=== PATIENT | male | born 1965 | race Caucasian/White ===

== ENCOUNTER 2017-06-01 15:45 | Emergency (ER) | payer OTHER ==
[~2017-06-01] VITALS: Ht 180.3 cm; Wt 90.7 kg
[2017-06-01 15:56] VITALS: BP 137/75
--- NOTE | 2017-06-01 16:22 | ED UPPER/LOWER EXTREMITY COMPL ---
History of Present Illness General Chief Complaint: Laceration Procedure Stated Complaint: RT HAND LAC Source: patient Exam Limitations: no limitations Vital Signs & Intake/Output Vital Signs & Intake/Output Vital Signs Date Time Temp Pulse Resp B/P B/P Pulse O2 O2 Flow FiO2 Mean Ox Delivery Rate 06/01 1636 99 Room Air 06/01 1556 97.9 80 15 137/75 97 Room Air Room Air Allergies Coded Allergies: No Known Allergies (06/01/17) Reconcile Medications No Known Home Medications Triage Note: PT TO ED FOR C/C OF LAC TO R FOURTH FINGER S/P CHANGING UTILITY SAW BLADE. +BLEEDING IN TRIAGE, DRESSING APPLIED. TETANUS WITHIN 10 YEARS. Triage Nurses Notes Reviewed? yes Onset: Abrupt Duration: constant Timing: single episode today Severity: moderate Severity Numbers: 5 Pain/Injury Location: Left: 4th finger. Method of Injury: laceration HPI: Patient is a 52-year-old male who presents emergency and that today he accidentally cut the distal aspect of his right fourth digit of his hand with a razor blade resulting in a laceration in which bleeding was controlled prior to arrival. Patient is left arm dominant. Tetanus status is up to date. Past History Travel History Traveled to [place] past 21 day No Medical History Any Pertinent Medical History? none Neurological: NONE EENT: NONE Cardiovascular: NONE Respiratory: NONE Gastrointestinal: NONE Hepatic: NONE Renal: NONE Musculoskeletal: NONE Psychiatric: NONE Endocrine: NONE Blood Disorders: NONE Cancer(s): NONE CONCRETE FLOATER/Reproductive: NONE Surgical History Surgical History: non-contributory Psychosocial History What is your primary language Djib[place]ian Tobacco Use: Never used ETOH Use: occasional use Illicit Drug Use: denies illicit drug use Family History Hx Contributory? No Review of Systems Review of Systems Constitutional: Reports: no symptoms. EENTM: Reports: no symptoms. Respiratory: Reports: no symptoms. Cardiovascular: Reports: no symptoms. Gastrointestinal/Abdominal: Reports: no symptoms. Genitourinary: Reports: no symptoms. Musculoskeletal: Reports: see HPI. Skin: Reports: see HPI. Neurological/Psychological: Reports: no symptoms. Hematologic/Endocrine: Reports: see HPI, bleeding. Immunological: Reports: no symptoms. All Other Systems: Reviewed and Negative Physical Exam Physical Exam General Appearance: no apparent distress, alert Neurologic/Tendon: normal sensation, normal motor functions, normal tendon functions, responds to pain, no evidence tendon injury, no pulse deficit Skin: normal color, warm/dry Comments: Well-developed well-nourished no apparent distress. HEENT: Atraumatic, extraocular motion intact Neck: Supple, no lymphadenopathy Back: Nontender Respiratory: No respiratory distress Extremities: Right wrist normal INSPECTION nontender Neuro: Alert and oriented x3 Psych: Mood affect normal, normal memory normal judgment. Diagram Hands Back 1) Noted deep 1 cm flap laceration involving approximate 20% of the distal nail no exposed bone no exposed tendon full active range of motion of flexion and extension full resisted range of motion noted flexion-extension no tendon deficit no active bleeding Progress Differential Diagnosis: arterial insufficiency, compartment syndrome, contusion, dislocation, DVT, fracture, gout, septic arthritis, sprain, tendon injury Plan of Care: Orders Procedure Date/time Status XRY-HAND, 3 View RIGHT 06/01 1558 Active Patient tolerated laceration repair well. Patient was strongly advised to follow-up with plastic surgery Patient was offered pain medications and declined (EDA MANCIA,GRACE) Diagnostic Imaging: Viewed by Me: Radiology Read. Radiology Impression: no fracture Comments: PATIENT: VINCENT KRUSE PRESENT AGE: 52 PATIENT ACCOUNT NO: [id number] : 64 LOCATION: [facility] ORDERING PHYSICIAN: GRACE MANCIA SERVICE DATE: 06/01/17 EXAM TYPE: RAD - XRY-HAND, RIGHT EXAMINATION: XR HAND, RIGHT CLINICAL INFORMATION: Trauma COMPARISON: None TECHNIQUE: AP, lateral, and oblique views of the right hand. FINDINGS: There is soft tissue swelling of the fourth finger. No acute fracture or dislocation seen. No radiodense foreign body. IMPRESSION: Soft tissue injury of the fourth finger without acute fracture or dislocation. DICTATED BY: KORIN PEREZ MD DATE/TIME DICTATED:06/01/171630 PRINCIPAL SOFTWARE ARCHITECT:AIMEE DATE/TIME TRANSCRIBED:06/01/17 Departure Departure Disposition: HOME OR SELF CARE Condition: Stable Clinical Impression Primary Impression: Laceration of finger of right hand with damage to nail Referrals: KAITLYN SALDIVAR DO (PCP/Family) OTILIA SEGURA,TIM Additional Instructions: As discussed begin to look at the wound once a day and if you note signs of infection redness, pain, swelling, discharge return to the emergency room. Begin to change the dressings with the bandages and a Xeroform provided to the emergency room. Keep area dry and clean as YOU can. On Saturday follow-up and establish plastic surgeon Dr. Kwon to make an appointment to be seen later on that week for further evaluation treatment. Please have the stitches removed in approximately 10 days. For pain and inflammation begin [id number] ibuprofen For the following 2 days continue to leave the splint on TO IMPROVE healing then after just use the bandages provided to you Departure Forms: Customer Survey General Discharge Information Prescriptions: Current Visit Scripts No Known Home Medications Procedures Laceration/Wound Repair Laceration/Wound Repair: Wound Location: upper extremity (RIGHT INDEX 2ND DIGIT) Wound's Depth, Shape: flap Wound Length (cm): 1 Wound Explored: clean, no foreign body removed, irrigated extensively Irrigated w/ Saline (ccs): 500 Betadine Prep? Yes Anesthesia: 1% lidocaine Volume Anesthetic (ccs): 5 Wound Repaired With: sutures Suture Size/Type: 5:0 Number of Sutures: 5 Layer Closure? No Progress: Initially Betadine was used for sterile technique in which using 1% lidocaine 5 mL digital block was performed to right index finger second digit of hand. I then used #4 5-0 to the peripheral edge of the nail however using #1 4-0 Polysorb stitches I then approximated the nail through the avulsed nail to the nail bed margins were revised patient tolerated well. Xeroform bandage and finger splint was then applied pre-and post-neurovascular was intact
--- NOTE | 2017-06-01 16:36 | RADIOLOGY REPORT ---
EXAMINATION: XR HAND, RIGHT CLINICAL INFORMATION: Trauma COMPARISON: None TECHNIQUE: AP, lateral, and oblique views of the right hand. FINDINGS: There is soft tissue swelling of the fourth finger. No acute fracture or dislocation seen. No radiodense foreign body. IMPRESSION: Soft tissue injury of the fourth finger without acute fracture or dislocation.
== END 2017-06-01 18:06 ==
LOC: ERH 15:45
DX: S61.314A Laceration without foreign body of right ring finger with damage to nail, initial encounter (principal); W45.8XXA Other foreign body or object entering through skin, initial encounter; Y92.9 Unspecified place or not applicable; Y93.9 Activity, unspecified
CPT/HCPCS: 73130-RT

== ENCOUNTER 2017-11-28 13:27 | Observation (INO) | payer OTHER ==
[~2017-11-28] VITALS: Ht 180.3 cm; Wt 90.7 kg
[2017-11-28 14:08] LABS: ABSOLUTE BASOPHIL COUNT 0 /CUMM (0.0-0.2); ABSOLUTE EOSINOPHIL COUNT 0.1 /CUMM (0.0-0.7); ABSOLUTE GRANULOCYTE CT 11.2 /CUMM (1.4-6.5); ABSOLUTE MONOCYTE COUNT 0.7 /CUMM (0.10-0.60); BASOPHIL % 0.3 % (0.0-2.0); EOSINOPHIL % 0.7 % (0-5); GRANULOCYTE % 85.8 % (42.2-75.2); HEMATOCRIT 44.3 % (42-52); MEAN CORPUSCULAR HGB 30.1 PG (27.0-31.0); MEAN CORPUSCULAR HGB CONC 34.1 G/DL (33.0-37.0); MEAN CORPUSCULAR VOLUME 88.3 FL (80.0-94.0); MEAN PLATELET VOLUME 7.1 FL (7.4-10.4); PLATELET COUNT 307 /CUMM (130-400); RBC DISTRIBUTION WIDTH 13.6 % (11.5-14.5); RED BLOOD CELL CT 5.01 /CUMM (4.70-6.10)
--- NOTE | 2017-11-28 14:36 | ED GI/GU/ABDOMINAL COMPLAINT ---
History of Present Illness General Chief Complaint: Abdominal Pain/Flank Pain Stated Complaint: ABD PAIN Source: patient Exam Limitations: no limitations Vital Signs & Intake/Output Vital Signs & Intake/Output Vital Signs Date Time Temp Pulse Resp B/P B/P Pulse O2 O2 Flow FiO2 Mean Ox Delivery Rate 11/28 1802 98.4 84 20 129/69 98 Room Air Room Air 11/28 1734 97.6 11/28 1600 97.6 76 20 108/60 97 Room Air 11/28 1343 96.6 64 18 145/93 98 Room Air Allergies Coded Allergies: No Known Allergies (06/01/17) Reconcile Medications No Known Home Medications Triage Note: 52 YO MALE TO TRIAGE C/O RLQ PAIN SINCE THIS AM. PT STATES +NV. DENIES DIRRHEA. PT PALE IN COLOR. STATES PAIN IS SHARP IN NATURE. Triage Nurses Notes Reviewed? yes Onset: Abrupt Duration: day(s): (1), constant, continues in ED, getting worse Timing: single episode today Quality/Severity: sharpness, severe Severity Numbers: 8 Location: left lower quadrant, right lower quadrant Radiation: no radiation Activities at Onset: none Prior Abdominal Problems: none Past Sexual History: Unobtainable at this time No Modifying Factors: none Modifying Factors: Worsens With: movement, palpation. Associated Symptoms: abdominal pain, nausea/vomiting HPI: 52-year-old male no past medical history presents for evaluation of abdominal pain nausea and vomiting. Patient states that symptoms started abruptly late last night and been getting worse. The pain is located on both sides of his lower abdomen worse on the right side. Describes pain as sharp stabbing pain that does not radiate. He rates it as a attending is not taking any medicine. He reports associated nausea and vomiting. Has not been able to eat or drink much because of this. No previous abdominal surgeries never had these symptoms before. No chest pain or shortness of breath no fevers. No urinary symptoms no diarrhea. (Pradeep Teixeira) Past History Travel History Traveled to [place] past 21 day No Medical History Any Pertinent Medical History? see below for history Neurological: NONE EENT: NONE Cardiovascular: NONE Respiratory: NONE Gastrointestinal: NONE Hepatic: NONE Renal: NONE Musculoskeletal: NONE Psychiatric: NONE Endocrine: NONE Blood Disorders: NONE Cancer(s): NONE KNOWLEDGE ARCHITECT/Reproductive: NONE Surgical History Surgical History: non-contributory Psychosocial History What is your primary language [place]dean Tobacco Use: Never used Family History Hx Contributory? No (Pradeep Teixeira) Review of Systems Review of Systems Constitutional: Reports: no symptoms. EENTM: Reports: no symptoms. Respiratory: Reports: no symptoms. Cardiovascular: Reports: no symptoms. GI: Reports: see HPI, abdominal pain, nausea, vomiting. Genitourinary: Reports: no symptoms. Musculoskeletal: Reports: no symptoms. Skin: Reports: no symptoms. Neurological/Psychological: Reports: no symptoms. Hematologic/Endocrine: Reports: no symptoms. Immunologic/Allergic: Reports: no symptoms. All Other Systems: Reviewed and Negative (Pradeep Teixeira) Physical Exam Physical Exam General Appearance: well developed/nourished, alert, awake, moderate distress Head: atraumatic, normal appearance Eyes: Bilateral: normal appearance, PERRL, EOMI. Ears, Nose, Throat, Mouth: hearing grossly normal, moist mucous membrane, Tympanic normal Neck: normal inspection, supple, full range of motion Respiratory: normal breath sounds, chest non-tender, no respiratory distress, lungs clear Cardiovascular: regular rate/rhythm, normal peripheral pulses Peripheral Pulses: 2+ radial (R), 2+ radial (L) Gastrointestinal: normal bowel sounds, soft, no organomegaly, tenderness (rlq, suprapubic ) Back: normal inspection, normal range of motion, no vertebral tenderness Extremities: normal range of motion Neurologic/Psych: no motor/sensory deficits, awake, alert, oriented x 3, normal gait Skin: intact, normal color, warm/dry Core Measures ACS in differential dx? No Sepsis Present: No Sepsis Focused Exam Completed? No (Pradeep Teixeira) Progress Differential Diagnosis: appendicitis, biliary colic, cholecystitis, diverticulitis, gastritis, pancreatitis, peptic ulcer, PUD/GERD, ureterolithiasis, UTI/pyelo Plan of Care: Orders Procedure Date/time Status EKG 11/28 1800 Active Add-on Test (ER Only) 11/28 1700 Active Add-on Test (ER Only) 11/28 1655 Active TYPE & SCREEN (NOT X-MATCH) 11/28 1655 Complete PARTIAL THROMBOPLASTIN TIME 11/28 1348 Complete PROTHROMBIN TIME 11/28 1348 Complete URINALYSIS 11/28 1332 Complete COMPREHENSIVE METABOLIC PANEL 11/28 1332 Complete CBC WITHOUT DIFFERENTIAL 11/28 1332 Complete Laboratory Tests 11/28/17 1715: Urine Color YEL, Urine Clarity HAZY H, Urine pH 6.5, Ur Specific [place] 1.020, Urine Protein TRACE H, Urine Ketones >=80, Urine Nitrite NEG, Urine Bilirubin NEG, Urine Urobilinogen 0.2, Ur Leukocyte Esterase NEG, Ur Microscopic SEDIMENT EXAMINED, Urine RBC RARE, Urine WBC RARE, Ur Epithelial Cells RARE, Urine Bacteria RARE H, Urine Mucus FEW, Urine Hemoglobin NEG, Urine Glucose NEG 11/28/17 1348: Anion Gap 13, Estimated GFR > 60, BUN/Creatinine Ratio 21.1, Glucose 123 H, Calcium 9.7, Total Bilirubin 0.8, AST 27, ALT 44, Alkaline Phosphatase 93, Total Protein 7.3, Albumin 4.4, Globulin 2.9, Albumin/Globulin Ratio 1.5, PT 10.0, INR 0.95, APTT 32, CBC w Diff MAN DIFF ORDERED, RBC 5.01, MCV 88.3, MCH 30.1, RDW 13.6, MPV 7.1 L, Gran % 85.8 H, Lymphocytes % 7.8 L, Monocytes % 5.4, Eosinophils % 0.7, Basophils % 0.3, Absolute Granulocytes 11.2 H, Absolute Lymphocytes 1.0 L, Absolute Monocytes 0.7 H, Absolute Eosinophils 0.1, Absolute Basophils 0, Platelet Estimate VERIFIED BY SMEAR, Normocytic RBCs VERIFIED, Normochromic RBCs VERIFIED, PUBS MCHC 34.1 pt saeen and evaluated, he has n/v and abdominal pain worse on the rt side. he has an elevated wbc and ct shows acute appy. pt is feeling better after toradol and tylenol. also zofran and fluids. Spoke with surgical PA patient will be going to the operating room tonight for laparoscopic appendectomy. Unasyn ordered. Case discussed with Dr. Manzanares he agrees Diagnostic Imaging: Viewed by Me: CT Scan. Discussed w/RAD: CT Scan. Radiology Impression: PATIENT: VINCENT KRUSE PRESENT AGE: 52 PATIENT ACCOUNT NO: [id number] : 63 LOCATION: [facility] ORDERING PHYSICIAN: Pradeep MANCIA SERVICE DATE: 11/28/17 EXAM TYPE: CAT - CT ABD & PELVIS W/O IV CONTRAS EXAMINATION: CT ABDOMEN AND PELVIS WITHOUT CONTRAST CLINICAL INFORMATION: Right lower quadrant, right flank, and suprapubic pain. Presumptive diagnosis of kidney stones, hernia, Appendicitis COMPARISON: None TECHNIQUE: Multidetector volumetric imaging was performed from the superior aspect of the liver through the pubic symphysis. Sagittal and coronal reformatted images were obtained on the technologist's workstation. DLP: 560.6 mGy-cm FINDINGS: LUNG BASES: Mild dependent atelectasis. No focal consolidation. LIVER, GALLBLADDER, AND BILIARY TREE: A small hepatic calcification near the confluence of the right hepatic vein in the IVC may correspond to a small granuloma. No suspicious hepatic lesions are identified. Liver is normal in size , contour, and attenuation without additional abnormalities. No biliary duct dilatation. The gallbladder is unremarkable with no evidence of radiopaque gallstones, gallbladder wall thickening, or obvious pericholecystic inflammatory changes. PANCREAS: Unremarkable. SPLEEN: Unremarkable. ADRENAL GLANDS: Unremarkable. KIDNEYS AND URETERS: The kidneys are normal in size, shape, and attenuation. No hydronephrosis, hydroureter, or calculi seen. No perinephric stranding. BLADDER: Unremarkable. GASTROINTESTINAL TRACT: Stomach, small bowel, and colon are normal in caliber. The appendix is thickened to 1.1 cm in diameter. Dense internal material within the appendix may correspond to an appendicolith. There is mild surrounding fat stranding. No evidence of perforation or abscess. No additional bowel wall thickening or surrounding inflammatory changes. No intraperitoneal free fluid or free air. ABDOMINAL WALL : Tiny fat-containing umbilical hernia. No bowel involvement. No additional hernias.. LYMPH NODES: Normal. VASCULAR: Unremarkable. PELVIC VISCERA: Small central calcifications are present in the prostate. The prostate and seminal vesicles are otherwise unremarkable. OSSEOUS STRUCTURES: Minimal degenerative disc disease is present at L5-S1. Hips and SI joints are well-preserved. IMPRESSION: Acute uncomplicated appendicitis. This critical result was discussed by telephone with Dr. Clemons at 4:55 PM on 11/28/2017 . DICTATED BY: Titi Cintron MD DATE/TIME DICTATED:11/28/171648 DIRECTOR OF CLINICAL APPLICATIONS:AIMEE DATE/TIME TRANSCRIBED:11/28/171648 CONFIDENTIAL, DO NOT COPY WITHOUT APPROPRIATE AUTHORIZATION. Initial ED EKG: none (Pradeep Teixeira) Departure Departure Disposition: STILL A PATIENT Condition: Stable Clinical Impression Primary Impression: Acute appendicitis Qualifiers: Acute appendicitis type: unspecified acute appendicitis type Qualified Code: K35.80 - Unspecified acute appendicitis Referrals: Praneeth Serrato DO (PCP/Family) Departure Forms: Customer Survey General Discharge Information Prescriptions: Current Visit Scripts No Known Home Medications OR/GI Note Spoke With: Anita SEGURA,Deepak N. ED Treatment Decision: VINCENT KRUSE requires urgent operative management or an emergent procedure that cannot be performed in the Emergency Room setting. Laparoscopic appendectomy Transport To: [facility] (Pradeep Teixeira) PA/INSPECTOR REPAIRER Co-Sign Statement Statement: ED Attending supervision documentation- [x] I saw and evaluated the patient. I have also reviewed all the pertinent lab results and diagnostic results. I agree with the findings and the plan of care as documented in the PA's/INSPECTOR REPAIRER's documentation. [] I have reviewed the ED Record and agree with the PA's/INSPECTOR REPAIRER's documentation. [] Additions or exceptions (if any) to the PAs/INSPECTOR REPAIRER's note and plan are summarized below: [] (Jorge Manzanares DO)
--- NOTE | 2017-11-28 17:00 | CT SCAN REPORT ---
EXAMINATION: CT ABDOMEN AND PELVIS WITHOUT CONTRAST CLINICAL INFORMATION: Right lower quadrant, right flank, and suprapubic pain. Presumptive diagnosis of kidney stones, hernia, Appendicitis COMPARISON: None TECHNIQUE: Multidetector volumetric imaging was performed from the superior aspect of the liver through the pubic symphysis. Sagittal and coronal reformatted images were obtained on the technologist's workstation. DLP: 560.6 mGy-cm FINDINGS: LUNG BASES: Mild dependent atelectasis. No focal consolidation. LIVER, GALLBLADDER, AND BILIARY TREE: A small hepatic calcification near the confluence of the right hepatic vein in the IVC may correspond to a small granuloma. No suspicious hepatic lesions are identified. Liver is normal in size, contour, and attenuation without additional abnormalities. No biliary duct dilatation. The gallbladder is unremarkable with no evidence of radiopaque gallstones, gallbladder wall thickening, or obvious pericholecystic inflammatory changes. PANCREAS: Unremarkable. SPLEEN: Unremarkable. ADRENAL GLANDS: Unremarkable. KIDNEYS AND URETERS: The kidneys are normal in size, shape, and attenuation. No hydronephrosis, hydroureter, or calculi seen. No perinephric stranding. BLADDER: Unremarkable. GASTROINTESTINAL TRACT: Stomach, small bowel, and colon are normal in caliber. The appendix is thickened to 1.1 cm in diameter. Dense internal material within the appendix may correspond to an appendicolith. There is mild surrounding fat stranding. No evidence of perforation or abscess. No additional bowel wall thickening or surrounding inflammatory changes. No intraperitoneal free fluid or free air. ABDOMINAL WALL: Tiny fat-containing umbilical hernia. No bowel involvement. No additional hernias.. LYMPH NODES: Normal. VASCULAR: Unremarkable. PELVIC VISCERA: Small central calcifications are present in the prostate. The prostate and seminal vesicles are otherwise unremarkable. OSSEOUS STRUCTURES: Minimal degenerative disc disease is present at L5-S1. Hips and SI joints are well-preserved. IMPRESSION: Acute uncomplicated appendicitis. This critical result was discussed by telephone with Dr. Clemons at 4:55 PM on 11/28/2017 .
[2017-11-28 17:26] LABS: PTT 32 SEC (25-37)
--- NOTE | 2017-11-28 18:19 | Operative Report ---
Operative/Inv Procedure Report Surgery Date: 11/28/17 Name of Procedure: Laparoscopic appendectomy Pre-Operative Diagnosis: Acute appendicitis Post-Operative Diagnosis: Same Estimated Blood Loss: scant Surgeon/Drilling Inspector: MD BLANCHE Duran Anesthesia: general endotracheal tube Operative/Procedure Note Note: Patient was placed on the OR table in the supine position. After successful induction of general anesthesia the patient's abdomen was prepped clipped and draped in the usual sterile fashion The left arm was tucked. Local anesthetic was injected at the top of the umbilicus and entry into the peritoneum was established via the open Sheppard technique: a one cm curved incision was made at the top of the umbilicus, the linea alba was secured between 2 pediatric Tila clamps and incised vertically, 0-Vicryl stay sutures were placed on each side and then while retracting upwards, the peritoneal layer was entered sharply, then through that small opening, using an S retractor acting like a shoehorn, a 10 mm blunt trocar was inserted obliquely to the right and secured with the stay sutures. The gas was turned on to maximum of 15 mm, two 5 mm dissecting ports were then inserted, one suprapubic and one left lower quadrant, laterally. We used a local anesthetic needle to guide their trajectories, particular attention was given to avoid injury to the bowel, the bladder and the epigastric vessels. Then our attention was directed to the right lower quadrant, the small bowel was swept superiorly and medially, revealing the base of the cecum. An inflamed appendix was then mobilized by it from the lateral and inferior peritoneal attachments using cautery. Using a combination of a [place] dissector, peanut dissector and a Nhan clamp, a window was developed between the mesoappendix and the base of the appendix. This window is then used to divide the appendix at the base and the mesoappendix with a linear stapling device, separately, using an intestinal cartridge for the appendix and a vascular cartridge for the mesoappendix; the division of the appendix includes a small flange of cecal base. The appendix is lowered into an Endobag and set aside. The staple lines were checked for bleeding and small oozing was controlled with light zaps of the cautery. We deliberately irrigate the area including up by the liver and down in the pelvis, several rounds, checking the staple lines and each time to make sure that there is no ongoing bleeding. Next the instruments and the trochars and Endobag are removed, letting the gas out. We closed the umbilical fascial incision with a [id number] 0 vicryl suture, then the 3 skin incisions are closed with multiple interrupted subcuticular 4-0 Biosyn sutures, 3 for the umbilical, 1 each for the smaller ones, then covered with Mastisol, Steri-Strips and Band-Aids. EBL minimal Lap and sponge and sponge counts: correct Wound expectancy: infected IV fluids: crystalloid Complications: none Patient tolerated the procedure well was awakened and extubated and returned to the recovery room in satisfactory condition. He'll be kept overnight in observation status to watch his vital signs and pain control initially with IV meds.
--- NOTE | 2017-11-28 18:19 | History & Physical Pre-Op ---
See Addendum General Information and HPI MD Statement: I have seen and personally examined VINCENT KRUSE and documented this H&P. The patient is a 52 year old M who presented with a patient stated chief complaint of []. History of Present Illness: CC: abdominal pain HPI: 46-year-old otherwise healthy nondiabetic nonsmoker no medications no prior intra-abdominal surgeries with a family history of colon cancer was in his usual state of good health when he woke up early this morning with abdominal pain which migrated and persisted in his right lower quadrant suprapubic area not much right now relieved with analgesics and was severe initially hurt on movement some initial nausea no significant vomiting no fevers no sweats no recent changes in bowel habits weight or appetite no family history of appendicitis no dysuria pain doesn't radiate. I've reviewed the [facility]. No history of GERD, PUD, bleeding problems, heart disease or issues with anesthesia. Family history positive for stroke in his father mother had ovarian cancer and sister had colon cancer Allergies/Medications Allergies: Coded Allergies: No Known Allergies (06/01/17) Home Med list No Known Home Medications Past History Medical History Neurological: NONE EENT: NONE Cardiovascular: NONE Respiratory: NONE Gastrointestinal: NONE Hepatic: NONE Renal: NONE Musculoskeletal: NONE Psychiatric: NONE Endocrine: NONE Blood Disorders: NONE Cancer(s): NONE CLINIC OFFICE MANAGER/Reproductive: NONE Surgical History Pertinent Surgical History: non-contributory Review of Systems Review of Systems: Constitutional: No fever, sweats or weight loss ENMT: No sore throat Cardiovascular: No chest pain, palpitations or leg swelling Respiratory: No shortness of breath, cough, or sputum or dyspnea on exertion GI: No GERD or bleeding per rectum : No dysuria or hematuria Musculoskeletal: No new muscle weakness, bone or joint pain Skin / Breast: No jaundice, rashes or itching Psychiatric: No history of drug or alcohol abuse no depression or anxiety Hematologic / lymphatic system: No problems with excessive bleeding, bruising, or blood clots Exam & Diagnostic Data Last 24 Hrs of Vital Signs/I&O I reviewed Vital Signs Date Time Temp Pulse Resp B/P B/P Pulse O2 O2 Flow FiO2 Mean Ox Delivery Rate 11/28 1802 98.4 84 20 129/69 98 Room Air Room Air 11/28 1734 97.6 11/28 1600 97.6 76 20 108/60 97 Room Air 11/28 1343 96.6 64 18 145/93 98 Room Air I reviewed Intake & Output 11/28 1600 11/28 0800 11/28 0000 Intake Total 1000 Output Total Balance 1000 Intake, IV 1000 Patient 200 lb Weight Weight Reported by Patient Measurement Method Physical Exam: Constitutional: pleasant, no acute distress, conversant Eyes: sclera anicteric ENMT: ears and nose atraumatic, moist mucous membranes, good dentition, no lip lesions Neck: Supple, trachea is midline, no cervical or supraclavicular adenopathy and no palpable thyromegaly Cardiovascular: S1, S2, no murmurs, no peripheral edema Respiratory: clear to auscultation with normal respiratory effort and no intercostal retractions GI: abdomen soft, mild suprapubic tenderness no rebound, nondistended, no palpable hepatosplenomegaly Extremities / lymphatics: symmetrically warm, free range of motion no peripheral edema, no cervical, supraclavicular, axillary, or inguinal adenopathy Musculoskeletal: Did not evaluate gait and station, no digital cyanosis, good muscle strength and tone no atrophy, motor grossly 5 out of 5 throughout Skin: no jaundice, no rashes warm, nondiaphoretic, no areas of erythema or induration Psychiatric: mood and affect are appropriate and alert and oriented to person place and time Assessment/Plan Assessment/Plan: I reviewed today CT scan up X myself there is a thickened not particularly inflamed elongated appendix pointing pelvic Impression is acute appendicitis. I explained to the patient that this is a potentially life-threatening infection for which I recommend an appendectomy. I feel antibiotics often alone are not enough and sometimes there is an occult malignancy. The severity of infection is related to the chance of perforation which usually increases after about 24 hours fortunately the patient is presenting earlier. Depending on what we find intraoperatively they may be discharged the same day or may need to stay for more IV antibiotics, at depends. I also discussed the possibility of a postoperative infection whether superficial or deep, this is also related to the initial severity and may also appear even a week later after an initial interval of well-being during the recovery. I explained the operation we usually do it laparoscopically rarely converting to open, depending on the amount of inflammation and whether the anatomy is very unusual all to avoid inadvertent injury to surrounding surrounding structures such as bowel and blood vessels and ureter. We also discussed the potential risks, benefits and alternatives to the procedure and surgery in general, issues that included but were not limited to, anesthetic risks hemorrhage requiring transfusion, the risk of transfusion itself, infection, heart attack, stroke, . As Ranked By This Provider Problem List: 1. Acute appendicitis
[2017-11-28 21:42] VITALS: BP 118/70
[2017-11-29 04:33] VITALS: BP 112/70
[2017-11-29] MEDS ORDERED: PERCOCET 5-3251 EACH PO ×2 (06:54→08:01)
--- NOTE | 2017-11-29 06:59 | Patient Discharge Instructions ---
Discharge Instructions General Discharge Information You were seen/treated for: Acute appendicitis You had these procedures: Laparoscopic appendectomy on 11/28/17 Watch for these problems: Increased pain, fever, nausea, vomiting, redness, swelling purulent drainage Do not soak the wound: Yes No bath, but you may shower: Yes Other wound care: Keep bandages on for 24 hours, allow white steri strips to fall off on their own Change dressing daily as needed Diet Continue normal diet: Yes Activity Full Activity/No Limits: No Pounds, do NOT lift more than: 10 Acute Coronary Syndrome Inclusion Criteria At DC or during hospital stay patient has or had the following: ACS DIAGNOSIS No Discharge Core Measures Meds if any: Prescribed or Continued at Discharge Meds if any: NOT Prescribed or Continued at Discharge Congestive Heart Failure Inclusion Criteria At DC or during hospital stay patient has or had the following: CHF DIAGNOSIS No Discharge Core Measures Meds if any: Prescribed or Continued at Discharge Meds if any: NOT Prescribed or Continued at Discharge Cerebrovascular accident Inclusion Criteria At DC or during hospital stay patient has or had the following: CVA/TIA Diagnosis No Discharge Core Measures Meds if any: Prescribed or Continued at Discharge Meds if any: NOT Prescribed or Continued at Discharge Venous thromboembolism Inclusion Criteria VTE Diagnosis No VTE Type NONE VTE Confirmed by (Test) NONE Discharge Core Measures - Per Current guidelines, there needs to be overlap - treatment for the first 5 days of Warfarin therapy. - If discharged on Warfarin prior to 5 days of - overlap therapy, the patient will need to be - assessed for post discharge needs including - *Post discharge parental anticoagulation - *Warfarin and/or parental anticoagulation education - *Follow up date to check INR post discharge At least 5 days overlap therapy as Inpatient Yes Meds if any: Prescribed or Continued at Discharge Note: Overlap Therapy is Warfarin and Anticoagulant Meds if any: NOT Prescribed or Continued at Discharge
[2017-11-29 08:00] VITALS: BP 109/72
[2017-11-29] MEDS ORDERED: COLACE100 M1 PO (08:01)
--- NOTE | 2017-11-29 08:08 | PN- General Surgery ---
Subjective Subjective: Reports pain controlled. Tolerating diet. No nausea. Voiding well. Out of bed without difficulty. No dizziness. No shortness of breath. No chest pains. Objective Vital Signs and I&Os Vital Signs Date Time Temp Pulse Resp B/P B/P Pulse O2 O2 Flow FiO2 Mean Ox Delivery Rate 11/29 0433 98.1 74 20 112/70 95 11/28 2142 97.8 69 18 118/70 94 Room Air 11/28 1802 98.4 84 20 129/69 98 Room Air Room Air 11/28 1734 97.6 11/28 1600 97.6 76 20 108/60 97 Room Air 11/28 1343 96.6 64 18 145/93 98 Room Air Intake & Output 11/29 1600 11/29 0800 11/29 0000 11/28 1600 11/28 0800 11/28 0000 Intake Total 600 1412 1000 Output Total 200 Balance 600 1212 1000 Intake, IV 600 1412 1000 Intake, Oral 0 Output, Urine 200 Patient 200 lb 200 lb Weight Weight Reported by Patient Reported by Patient Measurement Method Physical Exam: General - alert & oriented x 3. comfortable. no acute distress. Lungs - clear bilaterally. no w/r/r. Cardiac - s1s2. reg. Abdomen - soft. dressings c/d/i. expected bonnie-incisional tenderness. Extremities - warm bilaterally. no c/c/e. calves soft and nontender b/l. Current Medications: Current Medications Sig/Ewa Start time Last Medication Dose Route Stop Time Status Admin Acetaminophen 650 MG Q4P PRN 11/28 2045 AC PO Acetaminophen 0 .STK-MED ONE 11/28 1734 DC IV Acetaminophen 1,000 MG ONCE ONE 11/28 1700 DC 11/28 N/A 1 UNIT IV 11/28 1714 1734 Ampicillin Sodium/ 3,000 MG ONCE ONE 11/28 1700 DC 11/28 Sulbactam Sodium IV 11/28 1729 1745 Sodium Chloride 100 ML Dextrose/Sodium 1,000 ML Q13H 11/28 204 DC 11/28 Chloride IV 2138 Ketorolac 30 MG ONCE ONE 11/28 1445 DC 11/28 Tromethamine IV 11/28 1446 1451 Ketorolac 0 .STK-MED ONE 11/28 144 DC Tromethamine .ROUTE Morphine Sulfate 2 MG Q3P PRN 11/28 2045 AC IV Ondansetron HCl 4 MG Q6P PRN 11/28 2045 AC 11/28 IV 2138 Ondansetron HCl 4 MG ONCE ONE 11/28 1445 DC 11/28 IV 11/28 1446 1451 Ondansetron HCl 0 .STK-MED ONE 11/28 1445 DC .ROUTE Oxycodone/ 1 TAB Q4P PRN 11/28 2045 AC Acetaminophen PO Oxycodone/ 2 TAB Q4P PRN 11/28 2045 AC Acetaminophen PO Sodium Chloride 1,000 ML BOLUS ONE 11/28 1445 DC 11/28 IV 11/28 1544 1451 Results Last 48 Hours of Labs: Laboratory Tests 11/28 1715 Urines Urine Color (YEL,AMB,STR) YEL Urine Clarity (CLEAR) HAZY H Urine pH (5.0 - 8.0) 6.5 Ur Specific [place] (1.001 - 1.035) 1.020 Urine Protein (NEG,<30 MG/DL) TRACE H Urine Ketones (NEG) >=80 Urine Nitrite (NEG) NEG Urine Bilirubin (NEG) NEG Urine Urobilinogen (0.1 - 1.0 EU/dl) 0.2 Ur Leukocyte Esterase (NEG) NEG Ur Microscopic SEDIMENT EXAMINED Urine RBC (0 - 5 /HPF) RARE Urine WBC (0 - 2 /HPF) RARE Ur Epithelial Cells (NONE,FEW) RARE Urine Bacteria (NEG/NONE) RARE H Urine Mucus (FEW,NONE) FEW Urine Hemoglobin (NEG) NEG Urine Glucose (N MG/DL) NEG 11/28 1348 Chemistry Sodium (137 - 145 mmol/L) 139 Potassium (3.5 - 5.1 mmol/L) 4.4 Chloride (98 - 107 mmol/L) 105 Carbon Dioxide (22 - 30 mmol/L) 21 L Anion Gap (5 - 16) 13 BUN (9 - 20 mg/dL) 19 Creatinine (0.7 - 1.2 mg/dL) 0.9 Estimated GFR (>60 ml/min) > 60 BUN/Creatinine Ratio (7 - 25 %) 21.1 Glucose (65 - 99 mg/dL) 123 H Calcium (8.4 - 10.2 mg/dL) 9.7 Total Bilirubin (0.2 - 1.3 mg/dL) 0.8 AST (17 - 59 U/L) 27 ALT (21 - 72 U/L) 44 Alkaline Phosphatase (< 127 U/L) 93 Total Protein (6.3 - 8.2 g/dL) 7.3 Albumin (3.5 - 5.0 g/dL) 4.4 Globulin (1.9 - 4.2 gm/dL) 2.9 Albumin/Globulin Ratio (1.1 - 2.2 %) 1.5 Coagulation PT (9.4 - 12.5 SEC) 10.0 INR (0.90 - 1.17) 0.95 APTT (25 - 37 SEC) 32 Hematology CBC w Diff MAN DIFF ORDERED WBC (4.8 - 10.8 /CUMM) 13.0 H RBC (4.70 - 6.10 /CUMM) 5.01 Hgb (14.0 - 18.0 G/DL) 15.1 Hct (42 - 52 %) 44.3 MCV (80.0 - 94.0 FL) 88.3 MCH (27.0 - 31.0 PG) 30.1 RDW (11.5 - 14.5 %) 13.6 Plt Count (130 - 400 /CUMM) 307 MPV (7.4 - 10.4 FL) 7.1 L Gran % (42.2 - 75.2 %) 85.8 H Lymphocytes % (20.5 - 51.1 %) 7.8 L Monocytes % (1.7 - 9.3 %) 5.4 Eosinophils % (0 - 5 %) 0.7 Basophils % (0.0 - 2.0 %) 0.3 Absolute Granulocytes (1.4 - 6.5 /CUMM) 11.2 H Absolute Lymphocytes (1.2 - 3.4 /CUMM) 1.0 L Absolute Monocytes (0.10 - 0.60 /CUMM) 0.7 H Absolute Eosinophils (0.0 - 0.7 /CUMM) 0.1 Absolute Basophils (0.0 - 0.2 /CUMM) 0 Platelet Estimate (ADEQUATE) VERIFIED BY SMEAR Normocytic RBCs VERIFIED Normochromic RBCs VERIFIED PUBS MCHC (33.0 - 37.0 G/DL) 34.1 Assessment/Plan Assessment/Plan This 52 year old male is POD#1 s/p laparoscopic appendectomy for acute appendicitis tolerating clear. trying food this morning. d/c ivf pain controlled oob/ambulating hep sc - dvt ppx placed in observation status due to anticipation of discharge to home today d/c home will d/w Core Measures Venous Thromboembolism VTE Risk Factors Surgery No Mechanical VTE Prophylaxis d/t N/A MechProphylax Ordered No VTE Pharm Prophylaxis d/t NA PharmProphylax ordered
== END 2017-11-29 10:30 ==
LOC: ERH 13:27 → ER-OR 13:50 → ERH 13:50 → 2NB 20:30 → PACUH 20:30 → ENRESERV 20:44 → ENTRNSPT 21:00 → 2NB 21:11 → CMPTRNSPT 21:13 → ENPENDDIS 11-29 08:33 → 2NB 11-29 10:30
PROVIDERS: Physician Assistant Medical
DX: K35.80 Unspecified acute appendicitis (principal); R10.30 Lower abdominal pain, unspecified
CPT/HCPCS: 6040; 36415; 74176; 81001; 88304; 93005; 93010; 96361; 96365; 96375; 96376; C9399; G0378; J0131; J1100; J1170; J1885; J2250; J2405; J3010; J7042

== ENCOUNTER 2018-05-13 08:41 | Emergency (ER) | payer OTHER ==
[~2018-05-13] VITALS: Ht 180.3 cm; Wt 90.7 kg
[~2018-05-13 08:41] MED LIST: COLACE100 M1 PO; PERCOCET 5-3251 EACH PO
--- NOTE | 2018-05-13 09:00 | ED CARDIAC/CP/PALPITATIONS ---
History of Present Illness General Chief Complaint: Chest Pain Stated Complaint: CHEST PAIN Source: patient Exam Limitations: no limitations Vital Signs & Intake/Output Vital Signs & Intake/Output ED Intake and Output 05/14 0000 05/13 1200 Intake Total Output Total Balance Patient 200 lb Weight Weight Reported by Patient Measurement Method Allergies Coded Allergies: No Known Allergies (06/01/17) Reconcile Medications Colchicine 0.6 MG TABLET 1 TAB PO BID PRN PERICARDITIS Ibuprofen 800 MG TABLET 1 TAB PO TID PRN PAIN/INFLAMMATION Ketorolac Tromethamine 10 MG TABLET 1 TAB PO TID PRN INFLAMMATION Triage Note: 42 Y/O MALE C/O L SIDED CHEST PAIN SINCE YESTERDAY; SUBSIDED IN INTENSITY OVERNIGHT BUT CONTINUES TO BE PRESENT. PAIN WORSE WITH LYING FLAT, IMPROVED WITH LEANING FORWARD. DENIES SOB. DENIES N/V/D. DENIES DIAPHORESIS. WAS EVAL'D AT DOCTOR AND ADVISED TO TAKE NEXIUM HOWEVER HAS TAKEN WITH NO CHANGE IN SYMPTOMS. EKG COMPLETED PRIOR TO TRIAGE TAKEN TO ROOM 1 Triage Nurses Notes Reviewed? yes Onset: Gradual Duration: waxing and waning Timing: recent history Location: substernal, central Radiation: neck, shoulders HPI: Patient is a 53-year-old male with an unremarkable past medical history presents emergency room stating that yesterday morning he was woken up with substernal chest pain with radiation of pain to his neck and left shoulder where he states that deep inhalation and lying supine makes worse and leaning forward makes better. Patient denies any change in symptoms of eating and drinking He was evaluated by his primary care doctor yesterday and was advised to begin Nexium for concerns of GERD however he feels no better Denies any fever chills abdominal pain nausea vomiting leg swelling hemoptysis shortness of breath cough diaphoresis Patient does drink alcohol 5 drinks a week denies any smoking history of illicit drug history Patient denies any excessive physical activity the day before symptoms began. Denies any pain with movement of left shoulder Denies any paresthesia or extremity swelling Patient received an EKG yesterday by his primary care doctor showing normal sinus rhythm (Catalino Frank) Past History Travel History Traveled to [place] past 21 day No Medical History Any Pertinent Medical History? none Neurological: NONE EENT: NONE Cardiovascular: NONE Respiratory: NONE Gastrointestinal: NONE Hepatic: NONE Renal: NONE Musculoskeletal: NONE Psychiatric: NONE Endocrine: NONE Blood Disorders: NONE Cancer(s): NONE PATIENT INTAKE REPRESENTATIVE/Reproductive: NONE History of MRSA: No History of VRE: No History of CDIFF: No Influenza Vaccine: 11/21/17 Surgical History Surgical History: non-contributory Psychosocial History What is your primary language Icelandic Tobacco Use: Never used Family History Hx Contributory? No (Catalino Frank) Review of Systems Review of Systems Constitutional: Reports: no symptoms. EENTM: Reports: no symptoms. Respiratory: Reports: see HPI. Cardiovascular: Reports: see HPI, chest pain. GI: Reports: see HPI. Genitourinary: Reports: no symptoms. Musculoskeletal: Reports: no symptoms. Skin: Reports: no symptoms. Neurological/Psychological: Reports: no symptoms. Hematologic/Endocrine: Reports: no symptoms. Immunologic/Allergic: Reports: no symptoms. All Other Systems: Reviewed and Negative (Catalino Frank) Physical Exam Physical Exam General Appearance: no apparent distress, alert, comfortable Head: atraumatic Eyes: Bilateral: normal appearance. Ears, Nose, Throat: normal pharynx, normal ENT inspection, hearing grossly normal Neck: normal inspection, supple Respiratory: normal breath sounds, chest non-tender, no respiratory distress Cardiovascular: regular rate/rhythm Peripheral Pulses: 2+ radial (L) Gastrointestinal: normal bowel sounds, soft, non-tender Extremities: normal inspection, normal capillary refill, no edema Neurologic/Psych: no motor/sensory deficits, awake, alert, oriented x 3 Skin: intact, normal color, warm/dry Comments: Left shoulder normal inspection full active range of motion nontender Core Measures ACS in differential dx? Yes CVA/TIA Diagnosis No Sepsis Present: No Sepsis Focused Exam Completed? No (Catalino Frank) Progress Differential Diagnosis: AMI, aortic dissection, atrial fibrillation, cholecystitis, CHF/pulm edema, costochondritis, hyperkalemia, hypovolemia, hyperthyroid, hyperventilation, intracranial hemorrhage, musculoskeletal pain, myocarditis, pancreatitis, pericarditis, pneumonia, pneumothorax, PSVT, pulmonary embolism, PUD/GERD, PVCs/PACs, respiratory failure, rib fracture, sepsis, unstable angina, V-fib/V-Tach, WPW syndrome Plan of Care: Orders Procedure Date/time Status Heart Healthy Diet 05/13 D Active TROPONIN LEVEL 05/13 1315 Complete EKG 05/13 1315 Active Add-on Test (ER Only) 05/13 1128 Active B-TYPE NATRIURETIC PEP (BNP) 05/13 913 Complete Telemetry/Medicare Compliance Auditor 05/13 906 Active TROPONIN LEVEL 05/13 906 Complete D-DIMER 05/13 906 Complete COMPREHENSIVE METABOLIC PANEL 05/13 906 Complete CBC WITHOUT DIFFERENTIAL 05/13 906 Complete EKG 05/13 08 Active Laboratory Tests 05/13/18 1315: Troponin I < 0.01 05/13/18 09: Anion Gap 11, Estimated GFR > 60, BUN/Creatinine Ratio 13.8, Glucose 127 H, Calcium 9.1, Total Bilirubin 0.9, AST 18, ALT 27, Alkaline Phosphatase 77, Troponin I < 0.01, Jrd-H-Rhaaqwnbofb Pept 118, Total Protein 6.5, Albumin 3.7, Globulin 2.8, Albumin/Globulin Ratio 1.3, D-Dimer High Sensitivty < 200, CBC w Diff NO MAN DIFF REQ, RBC 4.97, MCV 88.7, MCH 30.3, MCHC 34.1, RDW 13.4, MPV 6.9 L, Gran % 84.9 H, Lymphocytes % 5.5 L, Monocytes % 9.0, Eosinophils % 0.5, Basophils % 0.1, Absolute Granulocytes 9.5 H, Absolute Lymphocytes 0.6 L, Absolute Monocytes 1.0 H, Absolute Eosinophils 0.1, Absolute Basophils 0 Due to history of present illness and exam findings patient has concerns of chest wall pain however patient was given aspirin and GI cocktail and will be reevaluated patient was offered pain medications and declines any emergency room After initial GI cocktail was administered and prophylactic aspirin he had no improvement of symptoms to her symptoms still made worse with leaning back in deep inhalation Negative d-dimer NO suspicion OF pulmonary embolism Reviewed all blood work with patient and negative troponin Chest x-ray showed mild cardiomegaly and nonspecific atelectasis Patient will be given nitroglycerin FOR continued chest pain NO EKG FINDINGS FOR CONCERNS OF ISCHEMIA Dr. Adler was discussed with after second EKG showed generalized mild ST elevation in all leads for concerns of pericarditis he advised patient may be given Toradol and COLCHICINE He ordered a echocardiogram in the emergency room I discussed the echocardiogram with Dr. Adler in which he did not see any acute abnormalities which he advised patient to follow up in the office at the end of the week Patient did feel better after Toradol and colchicine Due to history of present illness and exam findings patient has likely pericarditis Upon discharge patient looks well no apparent distress and will comply with discharge instructions and had no questions Diagnostic Imaging: Viewed by Me: Radiology Read. CXR Impression: SEE COMMENTS Initial ED EKG: normal intervals, normal p-waves, normal QRS complex, 83 BPM,NSR Comments: PATIENT: VINCENT KRUSE PRESENT AGE: 53 PATIENT ACCOUNT NO: [id number] : 64 LOCATION: [facility] ORDERING PHYSICIAN: Catalino MANCIA SERVICE DATE: 05/13/18 EXAM TYPE: RAD - XRY-CHEST XRAY, TWO VIEWS EXAMINATION: XR CHEST CLINICAL INFORMATION: Chest pain. COMPARISON: None TECHNIQUE: 2 views of the chest were obtained. FINDINGS: There is mild cardiomegaly with normal pulmonary vascularity. Both lungs are expanded with patchy atelectasis and/or scarring in both lung bases. No gross bony abnormality seen. IMPRESSION: Bibasilar patchy atelectasis and/or scarring. Mild cardiomegaly. DICTATED BY: Andrés Daly MD DATE/TIME DICTATED:05/13/181029 DROP COUNT ASSOCIATE:AIMEE DATE/TIME TRANSCRIBED:05/13/181029 (Catalino Frank) Departure Departure Disposition: HOME OR SELF CARE Condition: Stable Clinical Impression Primary Impression: Chest pain Secondary Impressions: Pericarditis Referrals: Praneeth Serrato DO (PCP/Family) Jamal Adler MD Additional Instructions: As discussed begin the prescription of IBUPROFEN AND COLCHICINE for pain and use as directed, tomorrow please follow up and establish a machine quilt stuffer Dr. Adler for further evaluation treatment if symptoms worsen or if YOU develop a new symptom return to emergency room Departure Forms: Customer Survey General Discharge Information Prescriptions: Current Visit Scripts Ketorolac Tromethamine 1 TAB PO TID PRN INFLAMMATION #15 TAB Colchicine 1 TAB PO BID PRN PERICARDITIS #30 TAB Ibuprofen 1 TAB PO TID PRN PAIN/INFLAMMATION #21 TAB (Catalino Frank) PA/STAGE SET DESIGNER Co-Sign Statement Statement: ED Attending supervision documentation- x I saw and evaluated the patient. I have also reviewed all the pertinent lab results and diagnostic results. I agree with the findings and the plan of care as documented in the PA's/STAGE SET DESIGNER's documentation. [] I have reviewed the ED Record and agree with the PA's/STAGE SET DESIGNER's documentation. [] Additions or exceptions (if any) to the PAs/STAGE SET DESIGNER's note and plan are summarized below: [] (Helene SEGURA,Kody) Critical Care Note Critical Care Note Critical Care Time: non-applicable (Bossman MANCIA,Catalino)
[2018-05-13 09:27] LABS: ABSOLUTE BASOPHIL COUNT 0 /CUMM (0.0-0.2); ABSOLUTE EOSINOPHIL COUNT 0.1 /CUMM (0.0-0.7); ABSOLUTE GRANULOCYTE CT 9.5 /CUMM (1.4-6.5); ABSOLUTE LYMPH COUNT 0.6 /CUMM (1.2-3.4); BASOPHIL % 0.1 % (0.0-2.0); EOSINOPHIL % 0.5 % (0-5); HEMATOCRIT 44.1 % (42-52); MEAN CORPUSCULAR HGB 30.3 PG (27.0-31.0); MEAN CORPUSCULAR HGB CONC 34.1 G/DL (33.0-37.0); MEAN CORPUSCULAR VOLUME 88.7 FL (80.0-94.0); MEAN PLATELET VOLUME 6.9 FL (7.4-10.4); PLATELET COUNT 282 /CUMM (130-400); RBC DISTRIBUTION WIDTH 13.4 % (11.5-14.5); RED BLOOD CELL CT 4.97 /CUMM (4.70-6.10); WHITE BLOOD CELL COUNT 11.2 /CUMM (4.8-10.8)
[2018-05-13 09:41] LABS: GRANULOCYTE % 84.9 % (42.2-75.2)
--- NOTE | 2018-05-13 10:35 | RADIOLOGY REPORT ---
EXAMINATION: XR CHEST CLINICAL INFORMATION: Chest pain. COMPARISON: None TECHNIQUE: 2 views of the chest were obtained. FINDINGS: There is mild cardiomegaly with normal pulmonary vascularity. Both lungs are expanded with patchy atelectasis and/or scarring in both lung bases. No gross bony abnormality seen. IMPRESSION: Bibasilar patchy atelectasis and/or scarring. Mild cardiomegaly.
[2018-05-13] MEDS ORDERED: KETOROLAC TROME10 M1 PO (12:00)
[2018-05-13] MEDS ORDERED: IBUPROFEN800 M1 PO (14:45)
[2018-05-13] MEDS ORDERED: COLCHICINE0.6 M2 PO (14:45)
--- NOTE | 2018-05-13 15:48 | ECHOCARDIOGRAM REPORT ---
VINCENT KRUSE Age: 53 : 1965 Gender: M Exam Date: 05/13/2018 14:09 Exam Location: [facility] Ht (in): 71 Wt (lb): 200 BSA: 2.15 BP: 121 / 68 Ordering Physician: Jamal Adler MD Referring Physician: Jamal Adler MD Technologist: Michelle Valerio RDCS Room Number: ER#1 Indications: PERICARDIAL CONDITIONS Rhythm: Sinus Technical Quality: Good FINDINGS Left Ventricle Normal size left ventricle. Normal left ventricular wall thickness. Normal left ventricular ejection fraction visually estimated at > 60%. No obvious regional wall motion abnormalities. Normal left ventricular wall motion. Normal left ventricular diastolic filling pattern for age. Right Ventricle Normal right ventricular size and function. Right Atrium Normal right atrial size. Left Atrium Normal left atrial size. Mitral Valve Mitral valve mildly thickened. Trace mitral regurgitation. Aortic Valve Structurally normal trileaflet aortic valve. No aortic stenosis. No aortic regurgitation. Tricuspid Valve Tricuspid valve not well visualized, grossly normal. Trace tricuspid regurgitation. No evidence of pulmonary hypertension. Pulmonic Valve Pulmonic valve not well visualized, grossly normal. Trace pulmonic regurgitation. Pericardium No pericardial effusion. Great Vessels Normal size aortic root. CONCLUSIONS Normal size left ventricle. Normal left ventricular ejection fraction visually estimated at > 60%. No obvious regional wall motion abnormalities. Trace mitral regurgitation. Trace tricuspid regurgitation. Trace pulmonic regurgitation. Jamal Adler M.D. (Electronically Signed) Final Date: 13 May 2018 15:47 MEASUREMENTS (Male / Female) Normal Values 2D ECHO LV Diastolic Diameter PLAX 3.7 cm 4.2 - 5.9 / 3.9 - 5.3 cm LV Systolic Diameter PLAX 2.4 cm 2.1 - 4.0 cm LV Fractional Shortening PLAX 35.1 % 25 - 46 % LV Ejection Fraction 2D Teich 65.3 % IVS Diastolic Thickness 1.0 cm LVPW Diastolic Thickness 1.1 cm LV Relative Wall Thickness 0.6 RV Internal Dim ED PLAX 3.0 cm 1.9 - 3.8 cm LVOT Diameter 2.2 cm Aortic Root Diameter 3.4 cm LA Systolic Diameter LX 3.2 cm 3.0 - 4.0 / 2.7 - 3.8 cm LA Volume 33.0 cm 18 - 58 / 22 - 52 cm Ascending Aorta Diameter 3.0 cm DOPPLER AV Peak Velocity 135.0 cm/s AV Peak Gradient 7.3 mmHg AV Mean Velocity 93.5 cm/s AV Mean Gradient 4.0 mmHg AV Velocity Time Integral 25.2 cm LVOT Peak Velocity 134.0 cm/s LVOT Peak Gradient 7.2 mmHg LVOT Mean Velocity 99.6 cm/s LVOT Mean Gradient 4.0 mmHg LVOT Velocity Time Integral 27.4 cm LVOT Stroke Volume 104.2 cm AV Area Cont Eq vti 4.1 cm AV Area Cont Eq pk 3.8 cm MV Peak Velocity 82.8 cm/s MV Peak Gradient 2.7 mmHg MV Mean Velocity 52.7 cm/s MV Mean Gradient 1.0 mmHg Mitral E Point Velocity 73.5 cm/s Mitral A Point Velocity 63.2 cm/s Mitral E to A Ratio 1.2 MV PHT Velocity 86.9 cm/s MV Deceleration [place] 443.0 cm/s MV Pressure Half Time 58.8 ms MV Area PHT 3.7 cm MV Deceleration Time 180.0 ms TR Peak Velocity 113.0 cm/s TR Peak Gradient 5.1 mmHg Right Atrial Pressure 5.0 mmHg Pulmonary Artery Systolic Pressu 10.1 mmHg Right Ventricular Systolic Press 10.1 mmHg PV Peak Velocity 97.9 cm/s PV Peak Gradient 3.8 mmHg PV Mean Velocity 57.4 cm/s PV Mean Gradient 2.0 mmHg PV Velocity Time Integral 24.3 cm LV E' Lateral Velocity 9.7 cm/s Mitral E to LV E' Lateral Ratio 7.6 LV E' Septal Velocity 10.0 cm/s Mitral E to LV E' Septal Ratio 7.3
[2018-05-13 16:06] VITALS: BP 116/85
== END 2018-05-13 16:07 ==
LOC: ERH 08:41
PROVIDERS: Physician Assistant
DX: I31.9 Disease of pericardium, unspecified (principal); R07.89 Other chest pain
CPT/HCPCS: 71046; 93005; 93010; 93306; 96374; J1885